=== PATIENT | male | born 1980 | race Two or more races ===

== ENCOUNTER 2017-08-05 03:15 | Emergency (ER) | payer MEDICAID, OTHER ==
[~2017-08-05] VITALS: Ht 185.4 cm; Wt 63.5 kg
[2017-08-05 03:42] VITALS: BP 113/66
[2017-08-05] MEDS ORDERED: IBUPROFEN 400 MG TABLET PO ONE (04:00)
[2017-08-05] MEDS ORDERED: IBUPROFEN 400 MG TABLET ONE (04:05)
== END 2017-08-05 04:28 | disposition home or self-care (01) ==
LOC: ER 03:15
DX: S93.492A Sprain of other ligament of left ankle, initial encounter (principal); F17.200 Nicotine dependence, unspecified, uncomplicated; X50.1XXA Overexertion from prolonged static or awkward postures, initial encounter; Y93.01 Activity, walking, marching and hiking; Y92.89 Other specified places as the place of occurrence of the external cause; Y99.8 Other external cause status
CPT/HCPCS: 73610; 99284; A4606; Z7610